=== PATIENT | female | born 2000 | race Caucasian/White ===

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

== ENCOUNTER 2020-01-16 07:00 | Outpatient (CLI) | payer OTHER ==
[2020-01-16 18:30] LABS: BASOPHILS % (AUTO) 0.5 %; EOSINOPHILS # (AUTO) 0.1 10^3/uL (0.0-0.7); EOSINOPHILS % (AUTO) 1.6 %; HGB - HEMOGLOBIN 12.9 g/dL (12.0-16.0); LYMPHOCYTES # (AUTO) 2.5 10^3/uL (1.5-3.5); LYMPHOCYTES % (AUTO) 31.8 %; MEAN CORPUSCULAR HEMOGLOBIN 27.8 pg (27.0-31.0); MEAN CORPUSCULAR VOLUME 86.9 fL (81.0-99.0); MEAN PLATELET VOLUME 9.2 fL (7.9-10.8); MONOCYTES # (AUTO) 0.4 10^3/uL (0.0-1.0); MONOCYTES % (AUTO) 4.6 %; NEUTROPHILS # (AUTO) 4.9 10^3/uL (1.5-6.6); NEUTROPHILS % (AUTO) 61.2 %; PLT - PLATELET COUNT 367 10^3/uL (130-450); RED BLOOD COUNT 4.64 10^6/uL (4.20-5.40); RED CELL DISTRIBUTION WIDTH 12.8 % (12.0-15.0)
[2020-01-16 18:44] LABS: ALBUMIN 3.8 g/dL (3.2-5.5); ALBUMIN/GLOBULIN RATIO 1.2 (1.0-2.2); BILIRUBIN,TOTAL 0.4 mg/dL (0.2-1.0); CREATININE 0.6 mg/dL (0.4-1.0); TOTAL PROTEIN 7.1 g/dL (6.7-8.2)
== END 2020-01-16 23:59 | disposition home or self-care (01) ==
LOC: LAB.WCP 07:00
PROVIDERS: ATTEND Physician Assistant
DX: E87.5 Hyperkalemia (principal); R61 Generalized hyperhidrosis; R10.9 Unspecified abdominal pain
CPT/HCPCS: 36415; 80053; 84443; 85025

== ENCOUNTER 2020-04-09 08:00 | Outpatient (CLI) | payer OTHER ==
[2020-04-09 18:46] LABS: ALBUMIN 3.8 g/dL (3.2-5.5); ALBUMIN/GLOBULIN RATIO 1.1 (1.0-2.2); BILIRUBIN,TOTAL 0.3 mg/dL (0.2-1.0); CALCIUM 9.3 mg/dL (8.5-10.3); CREATININE 0.6 mg/dL (0.4-1.0); TOTAL PROTEIN 7.2 g/dL (6.7-8.2)
[2020-04-09 18:55] LABS: HEMOGLOBIN A1c% 5.3 % (4.27-6.07)
[2020-04-09 18:59] LABS: BASOPHILS % (AUTO) 0.5 %; EOSINOPHILS # (AUTO) 0.1 10^3/uL (0.0-0.7); EOSINOPHILS % (AUTO) 0.7 %; HGB - HEMOGLOBIN 12.9 g/dL (12.0-16.0); LYMPHOCYTES # (AUTO) 2.1 10^3/uL (1.5-3.5); LYMPHOCYTES % (AUTO) 25.3 %; MEAN CORPUSCULAR HEMOGLOBIN 27.9 pg (27.0-31.0); MEAN CORPUSCULAR HGB CONC 32.3 g/dL (32.0-36.0); MEAN CORPUSCULAR VOLUME 86.4 fL (81.0-99.0); MEAN PLATELET VOLUME 9.8 fL (7.9-10.8); MONOCYTES # (AUTO) 0.5 10^3/uL (0.0-1.0); NEUTROPHILS # (AUTO) 5.6 10^3/uL (1.5-6.6); NEUTROPHILS % (AUTO) 67.3 %; PLT - PLATELET COUNT 353 10^3/uL (130-450); RED BLOOD COUNT 4.62 10^6/uL (4.20-5.40); RED CELL DISTRIBUTION WIDTH 12.2 % (12.0-15.0); WHITE BLOOD COUNT 8.3 x10^3/uL (4.8-10.8)
== END 2020-04-09 23:59 | disposition home or self-care (01) ==
LOC: LAB.WCP 08:00
PROVIDERS: ATTEND Physician Assistant
DX: R53.83 Other fatigue (principal); R61 Generalized hyperhidrosis; E66.3 Overweight
CPT/HCPCS: 36415; 80053; 83036; 85025; 85651

== ENCOUNTER 2020-04-22 04:59 | Emergency (ER) | payer OTHER ==
[2020-04-22] MEDS ORDERED: ONDANSETRON ODT 4 MG TABLET TL STA (05:23)
[2020-04-22] MEDS ORDERED: HYDROcod/ACETAM 5/325 MG TABLET PO STA (05:23)
--- NOTE | 2020-04-22 05:24 | ED Physician Documentation ---
PD HPI ABD PAIN - Stated complaint Stated Complaint: ADB PX, N/V - Chief complaint Chief Complaint: Abd Pain - History obtained from History obtained from: Patient - History of Present Illness Timing - onset: Last night (about 6 pm) Timing - details: Gradual onset, Still present (though has improved in the past hour or so enroute here.), Waxing and waning Quality: Cramping, Aching, Pain Location: Suprapubic, LLQ Radiation: Lower back Improved by: Laying still Worsened by: Moving, Palpation. No: Eating Associated symptoms: Fever (mild to just under 100.), Nausea, Diarrhea, Loss of appetite. No: Vomiting, Constipation, Melena, Hematochezia, Dysuria, Chest pain Similar symptoms before: No diagnosis Recently seen: Clinic, Emergency Dept (seen 3 month ago for similar without particular Dx. Presumed gastroenteritis at that point. Has had milder episodes too and has seen PMD. Discussion of possible colonscopy if recurrent episodes. Rx with dicyclomine daily at this point.) Review of Systems Constitutional: reports: Fever (mild). denies: Chills Nose: denies: Rhinorrhea / runny nose, Congestion Throat: denies: Sore throat Respiratory: denies: Cough GI: reports: Abdominal Pain, Nausea, Diarrhea. denies: Abdominal Swelling, Vo miting, Constipation, Bloody / black stool : denies: Dysuria, Frequency Skin: denies: Rash, Lesions Neurologic: denies: Generalized weakness, Near syncope PD PAST MEDICAL HISTORY - Past Medical History Past Medical History: No Cardiovascular: None Respiratory: None Neuro: None Endocrine/Autoimmune: None GI: Other Psych: Depression - Past Surgical History Past Surgical History: No - Present Medications Home Medications: Ambulatory Orders Medication Instructions Recorded Confirmed DULoxetine [Cymbalta] 30 mg PO DAILY 03/19/18 04/22/20 Dicyclomine HCl 0 mg PO QID PRN 12/20/19 04/22/20 Norgestimate-Ethinyl Estradiol 1 each PO DAILY 12/20/19 04/22/20 [Estarylla 0.25-0.035 mg Tablet] Ondansetron Odt [Zofran] 4 mg TL Q6H PRN #10 tablet 12/20/19 04/22/20 HYDROcod/ACETAM 5/325 [[place] 5/325] 1 ea PO Q6H PRN #12 tablet 04/22/20 Naproxen Sodium [Anaprox Ds] 550 mg PO BID #14 tablet 04/22/20 Ondansetron Odt [Zofran] 4 mg TL Q6H PRN #10 tablet 04/22/20 - Allergies Allergies/Adverse Reactions: Allergies Allergy/AdvReac Type Severity Reaction Status Date / Time amoxicillin Allergy Unknown Verified 04/22/20 07:25 Penicillins Allergy Hives Verified 04/22/20 05:03 shrimp Allergy Unknown Verified 04/22/20 07:25 - Social History Does the pt smoke?: No Smoking Status: Never smoker Does the pt drink ETOH?: No Does the pt have substance abuse?: No - Immunizations Immunizations are current?: Yes - POLST Patient has POLST: No PD ED PE NORMAL - Vitals Vital signs reviewed: Yes - General General: Alert and oriented X 3, Well developed/nourished, Other (seems just mildly uncomfortable here. Declines IV. ) - Cardiac Cardiac: RRR, No murmur - Respiratory Respiratory: Clear bilaterally - Abdomen Abdomen: Normal bowel sounds, Soft, Non distended, No organomegaly, Other (minimally tender suprapubic area and LLQ without guarding, percussion nor rebound tenderness. ) - Female Female : Deferred - Rectal Rectal: Deferred - Back Back: No CVA TTP - Derm Derm: Normal color, Warm and dry - Extremities Extremities: No tenderness to palpate, Normal ROM s pain, No edema, No calf tenderness / cord - Neuro Neuro: Alert and oriented X 3, No motor deficit, Normal speech Results - Vitals Vitals: Vital Signs - 24 hr 04/22/20 04/22/20 05:01 07:03 Temperature 36.3 C L Heart Rate 77 75 Respiratory 18 16 Rate Blood Pressure 137/83 H 133/85 H O2 Saturation 98 98 Oxygen O2 Source Room air - Labs Labs: Laboratory Tests 04/22/20 04/22/20 05:55 05:55 WBC 15.1 H RBC 4.82 Hgb 13.7 Hct 40.1 MCV 83.2 MCH 28.4 MCHC 34.2 RDW 11.7 L Plt Count 404 MPV 8.7 Neut # (Auto) 13.5 H Lymph # (Auto) 1.1 L [place] # (Auto) 0.5 Eos # (Auto) 0.0 Baso # (Auto) 0.0 Absolute Nucleated RBC 0.00 Nucleated RBC % 0.0 Sodium 133 L Potassium 3.8 Chloride 100 L Carbon Dioxide 22 Anion Gap 11.0 BUN 7 Creatinine 0.6 Estimated GFR (MDRD) 129 Glucose 134 H Calcium 8.6 Total Bilirubin 0.5 AST 16 ALT 13 Alkaline Phosphatase 75 C-Reactive Protein 2.1 H Total Protein 7.1 Albumin 3.9 Globulin 3.2 Albumin/Globulin Ratio 1.2 Lipase 26 PD MEDICAL DECISION MAKING - ED course Complexity details: reviewed old records, reviewed results, re-evaluated patient (feeling much better and minimally tender lower abd on recheck. ), considered differential (intermittent episodes of lower abd cramps/pains associated with diarrheal BMs and nausea. Consdier inflammatory bowel disorder. Not having acute abd exam at this time, so I feel imaging would not have any yield. More likely to get results/exclude processes with colonoscopy.), d/w patient Departure - Departure Disposition: Home, Self Care Clinical Impression: Abdominal pain Qualifiers: Abdominal location: lower abdomen, unspecified Qualified Code(s): R10.30 - Lower abdominal pain, unspecified Diarrhea Qualifiers: Diarrhea type: unspecified type Qualified Code(s): R19.7 - Diarrhea, unspecified Condition: Stable Record reviewed to determine appropriate education?: Yes Instructions: ED Abdominal Pain Unkn Cause Follow-Up: Jaelyn Young PA [Primary Care Provider] - Prescriptions: Naproxen Sodium [Anaprox Ds] 550 mg PO BID #14 tablet HYDROcod/ACETAM 5/325 [[place] 5/325] 1 ea PO Q6H PRN #12 tablet PRN Reason: Pain Ondansetron Odt [Zofran] 4 mg TL Q6H PRN #10 tablet PRN Reason: Nausea / Vomiting Comments: Your white count is a bit elevated again this time as it was in January. This could suggest an inflammatory or infectious cause. It is good that your pain is better now. I would suggest an anti-inflammatory twice daily naproxen for the next several days to week. To that add ondansetron if needed for nausea and Tylenol or pain medicine if needed for worse pains. Return if worsening symptoms overall. Otherwise follow-up with your primary care regarding further evaluation of these episodes. Discharge Date/Time: 04/22/20 07:15
[2020-04-22 06:09] LABS: BASOPHILS % (AUTO) 0.1 %; EOSINOPHILS % (AUTO) 0.2 %; HGB - HEMOGLOBIN 13.7 g/dL (12.0-16.0); LYMPHOCYTES # (AUTO) 1.1 10^3/uL (1.5-3.5); LYMPHOCYTES % (AUTO) 7.3 %; MEAN CORPUSCULAR HEMOGLOBIN 28.4 pg (27.0-31.0); MEAN CORPUSCULAR HGB CONC 34.2 g/dL (32.0-36.0); MEAN CORPUSCULAR VOLUME 83.2 fL (81.0-99.0); MEAN PLATELET VOLUME 8.7 fL (7.9-10.8); MONOCYTES # (AUTO) 0.5 10^3/uL (0.0-1.0); NEUTROPHILS # (AUTO) 13.5 10^3/uL (1.5-6.6); NEUTROPHILS % (AUTO) 89.1 %; PLT - PLATELET COUNT 404 10^3/uL (130-450); RED BLOOD COUNT 4.82 10^6/uL (4.20-5.40); RED CELL DISTRIBUTION WIDTH 11.7 % (12.0-15.0); WHITE BLOOD COUNT 15.1 x10^3/uL (4.8-10.8)
[2020-04-22 06:26] LABS: ALBUMIN 3.9 g/dL (3.2-5.5); ALBUMIN/GLOBULIN RATIO 1.2 (1.0-2.2); BILIRUBIN,TOTAL 0.5 mg/dL (0.2-1.0); CALCIUM 8.6 mg/dL (8.5-10.3); CREATININE 0.6 mg/dL (0.4-1.0); CRP - C-REACTIVE PROTEIN 2.1 mg/dL (0-1.0); TOTAL PROTEIN 7.1 g/dL (6.7-8.2)
[2020-04-22] MEDS ORDERED: NAPROXEN 250 MG TABLET PO STA (07:01)
[2020-04-22 07:15] VITALS: BP 133/85
== END 2020-04-22 07:15 | disposition home or self-care (01) ==
LOC: ED 04:59
DX: R10.32 Left lower quadrant pain (principal); R19.7 Diarrhea, unspecified; R11.0 Nausea; D72.829 Elevated white blood cell count, unspecified
CPT/HCPCS: 36415; 80053; 83690; 85025; 86140; 99283; 99284; A9270; Q0162

== ENCOUNTER 2020-04-24 08:00 | Outpatient (CLI) | payer OTHER ==
[2020-04-24 19:18] LABS: RHEUMATOID FACTOR NEGATIVE (Negative)
[2020-04-26 09:54] LABS: DNA (DS) ANTIBODY <1 IU/mL
[2020-04-26 11:42] LABS: ANA SCREEN NEGATIVE (NEGATIVE)
[2020-04-26 20:36] LABS: CYCLIC CITRULL PEPTIDE CCP IGG <16 UNITS
== END 2020-04-24 23:59 | disposition home or self-care (01) ==
LOC: LAB.WCP 08:00
PROVIDERS: ATTEND Physician Assistant
DX: R61 Generalized hyperhidrosis (principal)
CPT/HCPCS: 36415; 84443; 85651; 86038; 86140; 86200; 86225; 86430

== ENCOUNTER 2020-07-09 06:39 | Outpatient (CLI) | payer OTHER ==
--- NOTE | 2020-07-09 09:49 | Ultrasound Report ---
PROCEDURE: Abdomen Complete INDICATIONS: L ABD PAIN TECHNIQUE: Real-time scanning was performed of the abdominal and retroperitoneal organs, with image documentatio n. COMPARISON: 05/17/2007. FINDINGS: Liver: The liver demonstrates diffusely increased echotexture without focal abnormalities which is c onsistent with chronic hepatocellular disease/hepatic steatosis. Gallbladder: Gallbladder is normal in sonographic appearance without gallstones, wall thickening, or pericholecystic fluid. Negative sonographic Ambrose's. Biliary ducts: Intrahepatic bile ducts are non-dilated. Extrahepatic bile duct caliber measures 6 m m. Normal is 6-7 mm or less in diameter, or 10 mm or less post-cholecystectomy. Pancreas: Visualized portions of the pancreas are sonographically normal. Spleen: Spleen is normal in size and homogeneous in echotexture. Kidneys: Kidneys are normal in size and echotexture. Right kidney measures 10.7 cm long; left kidne y measures 10.5 cm long. No hydronephrosis or nephrolithiasis. No solid masses. Aorta: Visualized aorta is normal in caliber at less than 3 cm. Iliacs: Proximal common iliac arteries are normal in caliber at less than 2.5 cm. IVC: Intrahepatic inferior vena cava is patent. Miscellaneous: No free abdominal fluid. IMPRESSION: 1. Abdomen without acute sonographic abnormalities. 2. Mild diffuse hepatic steatosis. Reviewed by: Hadley Rodriguez MD on 07/09/2020 9:48 AM PDT Approved by: Hadley Rodriguez MD on 07/09/2020 9:48 AM PDT Station ID: [id number]
== END 2020-07-09 06:40 | disposition home or self-care (01) ==
LOC: DI 06:39
PROVIDERS: ATTEND Physician Assistant
DX: K76.0 Fatty (change of) liver, not elsewhere classified (principal)

== ENCOUNTER 2020-08-01 18:51 | Emergency (ER) | payer OTHER ==
--- OUTSIDE RECORDS SUMMARY | 2020-08-01 19:00 | EXTERNAL MEDICAL SUMMARY RPT | Continuity of Care Document ---
:2000 Demographics Phone Unavailable Preferred Language Unknown Marital Status Unknown Jainism Affiliation Unknown Race Unknown Ethnic Group Unknown Author Organization [facility] Address [address] [place] [address] Phone Social History date description facility [id number]
--- NOTE | 2020-08-01 19:15 | ED Physician Documentation ---
PD HPI CHEST PAIN - Stated complaint Stated Complaint: SOA - Chief complaint Chief Complaint: Cardiac - History obtained from History obtained from: Patient - Additional information Additional information: 5 days ago she was pulling on something and developed a sudden pop in the left upper anterior chest which has been persistent since with some mild breathlessness. Seen in urgent care and referred here for potential D-dimer check as the patient is on control. No close family history of coronary disease. No recent travel, no leg pain or pedal edema. No cough or hemoptysis. Review of Systems Ten Systems: 10 systems reviewed and negative Constitutional: denies: Fever, Chills Cardiac: denies: Palpitations, Pedal edema, Calf pain Respiratory: denies: Cough, Hemoptysis, Wheezing PD PAST MEDICAL HISTORY - Past Medical History Cardiovascular: None Respiratory: None Neuro: None Endocrine/Autoimmune: None GI: Other Psych: Depression - Past Surgical History Past Surgical History: No - Present Medications Home Medications: Ambulatory Orders Medication Instructions Recorded Confirmed DULoxetine [Cymbalta] 30 mg PO DAILY 03/19/18 04/22/20 Dicyclomine HCl 0 mg PO QID PRN 12/20/19 04/22/20 Norgestimate-Ethinyl Estradiol 1 each PO DAILY 12/20/19 04/22/20 [Estarylla 0.25-0.035 mg Tablet] Ondansetron Odt [Zofran] 4 mg TL Q6H PRN #10 tablet 12/20/19 04/22/20 HYDROcod/ACETAM 5/325 [[place] 5/325] 1 ea PO Q6H PRN #12 tablet 04/22/20 Naproxen Sodium [Anaprox Ds] 550 mg PO BID #14 tablet 04/22/20 Ondansetron Odt [Zofran] 4 mg TL Q6H PRN #10 tablet 04/22/20 - Allergies Allergies/Adverse Reactions: Allergies Allergy/AdvReac Type Severity Reaction Status Date / Time amoxicillin Allergy Unknown Verified 08/01/20 19:05 Penicillins Allergy Hives Verified 08/01/20 19:05 shrimp Allergy Unknown Verified 08/01/20 19:05 - Social History Does the pt smoke?: No Smoking Status: Never smoker Does the pt drink ETOH?: No Does the pt have substance abuse?: No - Immunizations Immunizations are current?: Yes - POLST Patient has POLST: No PD ED PE NORMAL - Vitals Vital signs reviewed: Yes - General General: Alert and oriented X 3, No acute distress - Neck Neck: Supple, no meningeal sign, No bony TTP - Cardiac Cardiac: RRR, No murmur - Respiratory Respiratory: No respiratory distress, Clear bilaterally - Abdomen Abdomen: Non tender - Extremities Extremities: No edema, No calf tenderness / cord - Neuro Neuro: Alert and oriented X 3, Normal speech Results - Vitals Vitals: Vital Signs - 24 hr 08/01/20 08/01/20 08/01/20 19:01 19:05 19:57 Temperature 36.5 C 36.5 C Heart Rate 98 98 Respiratory 16 16 16 Rate Blood Pressure 140/73 H 140/73 H O2 Saturation 99 99 08/01/20 20:28 Temperature 37.0 C Heart Rate 75 Respiratory 16 Rate Blood Pressure 133/70 H O2 Saturation 100 Oxygen O2 Source Room air - EKG (time done) 1902 Rate: Rate (enter#) (87) Rhythm: NSR [place]: Normal Intervals: Normal UT QRS: Normal Ischemia: Normal ST segments - Labs Labs: Laboratory Tests 08/01/20 08/01/20 08/01/20 19:14 19:14 19:14 WBC 8.4 RBC 4.65 Hgb 13.0 Hct 39.2 MCV 84.3 MCH 28.0 MCHC 33.2 RDW 12.5 Plt Count 325 MPV 8.8 Neut # (Auto) 5.8 Lymph # (Auto) 2.0 [place] # (Auto) 0.6 Eos # (Auto) 0.1 Baso # (Auto) 0.0 Absolute Nucleated RBC 0.00 Nucleated RBC % 0.0 D-Dimer < 200.0 L Sodium 137 Potassium 3.7 Chloride 102 Carbon Dioxide 23 Anion Gap 12.0 BUN 8 Creatinine 0.8 Estimated GFR (MDRD) 92 Glucose 83 Calcium 9.2 Total Bilirubin 0.8 AST 16 ALT 16 Alkaline Phosphatase 66 Troponin I High Sens Total Protein 7.5 Albumin 4.1 Globulin 3.4 Albumin/Globulin Ratio 1.2 Lipase 33 08/01/20 19:14 WBC RBC Hgb Hct MCV MCH MCHC RDW Plt Count MPV Neut # (Auto) Lymph # (Auto) [place] # (Auto) Eos # (Auto) Baso # (Auto) Absolute Nucleated RBC Nucleated RBC % D-Dimer Sodium Potassium Chloride Carbon Dioxide Anion Gap BUN Creatinine Estimated GFR (MDRD) Glucose Calcium Total Bilirubin AST ALT Alkaline Phosphatase Troponin I High Sens < 2.3 L Total Protein Albumin Globulin Albumin/Globulin Ratio Lipase - Rads (name of study) 1v chest Radiology: EMP read contemporaneously (NAD) PD MEDICAL DECISION MAKING - ED course ED course: Heart zero but PERC positive but dimer neg Departure - Departure Disposition: Home, Self Care Clinical Impression: Atypical chest pain Condition: Good Record reviewed to determine appropriate education?: Yes Instructions: ED Chest Pain NonCardiac Comments: Call your doctor to arrange a follow-up appointment, make the next available appointment. In the interim, return anytime if worse or if new symptoms deve lop. Discharge Date/Time: 08/01/20 20:28
[2020-08-01 19:21] LABS: BASOPHILS % (AUTO) 0.4 %; EOSINOPHILS # (AUTO) 0.1 10^3/uL (0.0-0.7); EOSINOPHILS % (AUTO) 0.7 %; HCT - HEMATOCRIT 39.2 % (37.0-47.0); LYMPHOCYTES % (AUTO) 23.8 %; MEAN CORPUSCULAR HGB CONC 33.2 g/dL (32.0-36.0); MEAN CORPUSCULAR VOLUME 84.3 fL (81.0-99.0); MEAN PLATELET VOLUME 8.8 fL (7.9-10.8); MONOCYTES # (AUTO) 0.6 10^3/uL (0.0-1.0); MONOCYTES % (AUTO) 6.5 %; NEUTROPHILS # (AUTO) 5.8 10^3/uL (1.5-6.6); NEUTROPHILS % (AUTO) 68.4 %; PLT - PLATELET COUNT 325 10^3/uL (130-450); RED BLOOD COUNT 4.65 10^6/uL (4.20-5.40); RED CELL DISTRIBUTION WIDTH 12.5 % (12.0-15.0); WHITE BLOOD COUNT 8.4 x10^3/uL (4.8-10.8)
--- NOTE | 2020-08-01 19:31 | XRAY Report ---
PROCEDURE: Chest 1 View X-Ray INDICATIONS: Chest Pain TECHNIQUE: One view of the chest was acquired. COMPARISON: Not available. FINDINGS: Surgical changes and devices: None. Lungs and pleura: No pleural effusions or pneumothorax. Lungs are clear. Mediastinum: Mediastinal contours appear normal. Heart size is normal. Bones and chest wall: No suspicious bony lesions. Overlying soft tissues appear unremarkable. IMPRESSION: No acute cardiopulmonary disease. Reviewed by: Jose Cruz El MD on 08/01/2020 7:30 PM PDT Approved by: Jose Cruz El MD on 08/01/2020 7:30 PM PDT Station ID: [id number]
[2020-08-01 19:42] LABS: ALBUMIN 4.1 g/dL (3.2-5.5); ALBUMIN/GLOBULIN RATIO 1.2 (1.0-2.2); BILIRUBIN,TOTAL 0.8 mg/dL (0.2-1.0); CALCIUM 9.2 mg/dL (8.5-10.3); CREATININE 0.8 mg/dL (0.4-1.0); POTASSIUM 3.7 mmol/L (3.5-5.0); TOTAL PROTEIN 7.5 g/dL (6.7-8.2)
[2020-08-01 20:30] VITALS: BP 133/70
== END 2020-08-01 20:28 | disposition home or self-care (01) ==
LOC: ED 18:51
DX: R07.89 Other chest pain (principal)
CPT/HCPCS: 36415; 80053; 83690; 84484; 85025; 85379; 93005; 99283; 99284

== ENCOUNTER 2020-11-06 23:07 | Emergency (ER) | payer OTHER ==
[2020-11-06 23:55] LABS: BASOPHILS % (AUTO) 0.2 %; EOSINOPHILS % (AUTO) 0.2 %; HGB - HEMOGLOBIN 14.2 g/dL (12.0-16.0); LYMPHOCYTES # (AUTO) 0.9 10^3/uL (1.5-3.5); LYMPHOCYTES % (AUTO) 7.1 %; MEAN CORPUSCULAR HEMOGLOBIN 28.4 pg (27.0-31.0); MEAN CORPUSCULAR HGB CONC 33.8 g/dL (32.0-36.0); MEAN PLATELET VOLUME 8.7 fL (7.9-10.8); MONOCYTES # (AUTO) 0.5 10^3/uL (0.0-1.0); MONOCYTES % (AUTO) 3.7 %; NEUTROPHILS # (AUTO) 10.7 10^3/uL (1.5-6.6); NEUTROPHILS % (AUTO) 88.6 %; PLT - PLATELET COUNT 329 10^3/uL (130-450); RED CELL DISTRIBUTION WIDTH 12.6 % (12.0-15.0); WHITE BLOOD COUNT 12.1 x10^3/uL (4.8-10.8)
[2020-11-06 23:56] LABS: BILIRUBIN,URINE NEGATIVE (NEGATIVE); GLUCOSE, URINE (UA) NEGATIVE (NEGATIVE); KETONES,URINE (UA) 15 mg/dL (NEGATIVE); LEUKOCYTE ESTERASE, URINE NEGATIVE (NEGATIVE); NITRITE,URINE NEGATIVE (NEGATIVE); OCCULT BLOOD,URINE NEGATIVE (NEGATIVE); PH,URINE 5.5 PH (5.0-7.5); PROTEIN,URINE NEGATIVE (NEGATIVE); UROBILINOGEN,URINE 1 (NORMAL) E.U./dL (NORMAL)
[2020-11-06 23:58] LABS: CLARITY,URINE CLEAR (CLEAR); HCG UR QUAL NEGATIVE
[2020-11-07 00:04] LABS: ALBUMIN 3.8 g/dL (3.2-5.5); ALBUMIN/GLOBULIN RATIO 1.1 (1.0-2.2); CALCIUM 8.4 mg/dL (8.5-10.3); CREATININE 0.7 mg/dL (0.4-1.0); POTASSIUM 3.8 mmol/L (3.5-5.0); TOTAL PROTEIN 7.2 g/dL (6.7-8.2)
--- NOTE | 2020-11-07 00:16 | ED Physician Documentation ---
PD HPI ABD PAIN - Stated complaint Stated Complaint: ABD PX - Chief complaint Chief Complaint: Abd Pain - History obtained from History obtained from: Patient - History of Present Illness Timing - onset: Enter time (06:00), Today Timing - details: Abrupt onset Pain level max: 8 Pain level now: 3 Quality: Cramping, Pain Location: All over / everywhere Improved by: Other (no apparent ameliorating factors) Worsened by: Eating Associated symptoms: Nausea, Vomiting. No: Fever, Diarrhea, Constipation Similar symptoms before: No diagnosis Recently seen: Not recently seen - Additional information Additional information: c/o waxing and waning generalized abdominal pain with nausea and vomiting, diarrhea, and diaphoresis since 6 AM. At times the symptoms have resolved only to return later without obvious/apparent inciting factors. She has had many previously similar episodes and has had testing both in ED (a few visits to this ED) as well as outpatient (has seen GI and had upper and lower endoscopy without significant findings). She has been using bentyl PRN with these episodes which often helps, sometimes providing complete and lasting resolution, but she vomited up the bentyl tonight. She says she recently was told she has a uterine fibroid, although this would be an incidental finding Review of Systems Constitutional: reports: Sweats. denies: Fever, Chills Cardiac: reports: Reviewed and negative Respiratory: reports: Reviewed and negative GI: reports: Abdominal Pain, Nausea, Vomiting. denies: Abdominal Swelling, Constipation, Diarrhea, Hematemesis, Bloody / black stool : denies: Dysuria, Hematuria, Vaginal bleeding, Now EGA PD PAST MEDICAL HISTORY - Past Medical History Cardiovascular: None Respiratory: None Neuro: None Endocrine/Autoimmune: None GI: Other Psych: Depression - Past Surgical History Past Surgical History: No General: Colonoscopy HEENT: Tonsil/Adenoidectomy - Present Medications Home Medications: Ambulatory Orders Medication Instructions Recorded Confirmed Dicyclomine HCl 20 mg PO QID PRN 12/20/19 11/06/20 Norgestimate-Ethinyl Estradiol 1 each PO DAILY 12/20/19 11/06/20 [Estarylla 0.25-0.035 mg Tablet] HYDROcod/ACETAM 5/325 [[place] 5/325] 1 ea PO Q6H PRN #12 tablet 04/22/20 Ondansetron Odt [Zofran] 4 mg TL Q6H PRN #10 tablet 04/22/20 buPROPion [Wellbutrin Sr] 150 mg PO BID 11/06/20 11/06/20 busPIRone [Buspar] 15 mg PO BID 11/06/20 11/06/20 - Allergies Allergies/Adverse Reactions: Allergies Allergy/AdvReac Type Severity Reaction Status Date / Time amoxicillin Allergy Unknown Verified 11/06/20 23:09 Penicillins Allergy Hives Verified 11/06/20 23:09 shrimp Allergy Unknown Verified 11/06/20 23:09 - Social History Does the pt smoke?: No Smoking Status: Never smoker Does the pt drink ETOH?: No Does the pt have substance abuse?: No - Immunizations Immunizations are current?: Yes - POLST Patient has POLST: No PD ED PE NORMAL - Vitals Vital signs reviewed: Yes - General General: Alert and oriented X 3, No acute distress, Well developed/nourished (as), Other (asleep when I walk into room, easily wakens to voice, NAD) - Cardiac Cardiac: RRR, No murmur - Respiratory Respiratory: No respiratory distress, Clear bilaterally - Abdomen Abdomen: Soft, Non distended, Other (mild TTP across lower abdomen without rebound or guarding) Results - Vitals Vitals: Oxygen O2 Source Room air - Labs Labs: Laboratory Tests 11/06/20 11/06/20 11/06/20 23:39 23:39 23:39 WBC 12.1 H RBC 5.00 Hgb 14.2 Hct 42.0 MCV 84.0 MCH 28.4 MCHC 33.8 RDW 12.6 Plt Count 329 MPV 8.7 Neut # (Auto) 10.7 H Lymph # (Auto) 0.9 L [place] # (Auto) 0.5 Eos # (Auto) 0.0 Baso # (Auto) 0.0 Absolute Nucleated RBC 0.00 Nucleated RBC % 0.0 Sodium 136 Potassium 3.8 Chloride 102 Carbon Dioxide 22 Anion Gap 12.0 BUN 11 Creatinine 0.7 Estimated GFR (MDRD) 107 Glucose 128 H Calcium 8.4 L Total Bilirubin 1.0 AST 13 ALT 13 Alkaline Phosphatase 74 Total Protein 7.2 Albumin 3.8 Globulin 3.4 Albumin/Globulin Ratio 1.1 Lipase 25 Urine Color YELLOW Urine Clarity CLEAR Urine pH 5.5 Ur Specific [place] >=1.030 H Urine Protein NEGATIVE Urine Glucose (UA) NEGATIVE Urine Ketones 15 H Urine Occult Blood NEGATIVE Urine Nitrite NEGATIVE Urine Bilirubin NEGATIVE Urine Urobilinogen 1 (NORMAL) Ur Leukocyte Esterase NEGATIVE Ur Microscopic Review NOT INDICATED Urine Culture Comments NOT INDICATED Urine HCG, Qual NEGATIVE - Rads (name of study) CT A/P with IV contrast Radiology: Prelim report reviewed, See rad report PD MEDICAL DECISION MAKING - ED course Complexity details: reviewed old records, reviewed results, re-evaluated patient, considered differential, d/w patient, d/w family ED course: reassuring and mostly unremarkable tests tonight; minimal leukocytosis (wbc 12.1). UA negative, urine HCG negative, normal LFTs. CT A/P without significant findings, incidental note of diverticulosis without diverticulitis. Patient is in NAD on initial evaluation as well as on reevaluation. She describes episodes of severe pain with diaphoresis, n/v/d, and as we discussed results and discharge plans, she reported pain was slowly returning. We discussed options for analgesia and agreed on IV toradol, PO vicodin with take-home pack for vicodin but no rx. she has bentyl at home and will take that as prescribed. Departure - Departure Disposition: 01 Home, Self Care Clinical Impression: Abdominal pain Qualifiers: Abdominal location: generalized Qualified Code(s): R10.84 - Generalized abdomi nal pain Condition: Good Instructions: ED Abdominal Pain Unkn Cause Follow-Up: Jaelyn Young PA-C [Primary Care Provider] - (Call in the morning to arrange for next available appointment) Discharge Date/Time: 11/07/20 03:11
[2020-11-07] MEDS ORDERED: IOPAMIDOL-300 100 ML VIAL ONE (00:46)
[2020-11-07] MEDS ORDERED: IOPAMIDOL-300 100 ML VIAL IVP ONE (01:12)
[2020-11-07] MEDS ORDERED: KETOROLAC 30 MG/ML VIAL IVP STA (02:44)
[2020-11-07] MEDS ORDERED: HYDROcod/ACETAM 5/325 MG TABLET PO STA (02:44)
[2020-11-07] MEDS ORDERED: HYDROcod/ACET 5/325 Prepack 4 PO STA (02:44)
[2020-11-07 03:06] VITALS: BP 124/80
--- NOTE | 2020-11-07 11:15 | CT Report ---
PROCEDURE: Abdomen/Pelvis W INDICATIONS: lower abdominal pain CONTRAST: IV CONTRAST: Isovue 300 ml: 100 PO CONTRAST: *NO PO CONTRAST TECHNIQUE: After the administration of terminates contrast, 5 mm thick sections acquired from the diaphragms to the symphysis. 5 mm thick coronal and sagittal reformats were acquired. For radiation dose reductio n, the following was used: automated exposure control, adjustment of mA and/or kV according to patie nt size. COMPARISON: Ultrasound abdomen, 07/09/2020. Ultrasound pelvis, 10/16/2019 FINDINGS: Image quality: Excellent. ABDOMEN: Lung bases: Lung bases are clear. Heart size is normal. Solid organs: Liver and spleen are normal in size and enhancement. Gallbladder is normal. Biliary system is non dilated. Pancreas enhances normally. No adrenal nodules. Kidneys demonstrate normal size and enhancement, without hydronephrosis. Peritoneum and bowel: Appendix is normal. Bowel loops demonstrate normal wall thickness and caliber. No free fluid or air. Nodes and vessels: No retroperitoneal or mesenteric adenopathy by size criteria. Aorta and inferior vena cava are normal in size. Miscellaneous: No ventral hernias. PELVIS: Genitourinary: Bladder wall thickness is normal. Uterus and ovaries are normal. There is a small am ount of free fluid in the cul-de-sac. Miscellaneous: No inguinal hernias or adenopathy. Bones: No suspicious bony lesions. No vertebral body compression fractures. IMPRESSION: 1. Normal appendix. 2. A small amount of free fluid in the cul-de-sac is likely within physiological limits for No significant discrepancy with the preliminary interpretation. Reviewed by: Jose Cruz El MD on 11/07/2020 11:14 AM PDT Approved by: Jose Cruz El MD on 11/07/2020 11:14 AM PDT Station ID: [id number]
== END 2020-11-07 03:11 | disposition home or self-care (01) ==
LOC: ED 23:07
DX: R10.84 Generalized abdominal pain (principal)
CPT/HCPCS: 36415; 74177; 80053; 81003; 81025; 83690; 85025; 96374; 99283; 99284; A9270; Q9967; 81001; 87086

== ENCOUNTER 2021-02-03 06:33 | Emergency (ER) | payer OTHER ==
[2021-02-03] MEDS ORDERED: SODIUM CHLORIDE 0.9% 1,000 ML IV STA (08:01)
--- NOTE | 2021-02-03 08:05 | ED Physician Documentation ---
PD HPI NVD - Stated complaint Stated Complaint: N/V - Chief complaint Chief Complaint: Abd Pain - History obtained from History obtained from: Patient - History of Present Illness Timing - onset: Last night Timing - duration: Hours Timing - details: Abrupt onset, Still present Associated symptoms: Abdominal pain, Other (diarrhea and vomiting) Contributing factors: Other (has hx of irritable bowel) Improved by: Vomiting, Meds Worsened by: Eating Similar symptoms before: Diagnosis (irritable bowel) Recently seen: Not recently seen - Additonal information Additional information: 20-year-old female with a history of irritable bowel syndrome has developed symptoms again yesterday evening and she has been having issue with vomiting diarrhea and abdominal pain most of the night. She has taken some Bentyl and some Zofran as well as some methocarbamol she states that she vomited on her way to the hospital and since vomiting at the hospital she has not had further vomiting for the last hour and a half and states her stomach pain is a bit better. She has had this a number of times previously she has been able to use rescue therapy successfully previously when she continued to have diarrhea and nausea and abdominal pain she came to the emergency department she feels improved now but is likely dehydrated. Review of Systems Constitutional: denies: Fever, Chills, Myalgias Eyes: denies: Decreased vision Ears: denies: Ear pain Nose: denies: Congestion Throat: denies: Sore throat Cardiac: denies: Chest pain / pressure, Palpitations Respiratory: denies: Dyspnea, Cough GI: reports: Abdominal Pain, Nausea, Vomiting, Diarrhea : denies: Dysuria, Frequency PD PAST MEDICAL HISTORY - Past Medical History Past Medical History: Yes Cardiovascular: None Respiratory: None Neuro: None Endocrine/Autoimmune: None GI: Other Psych: Depression - Past Surgical History Past Surgical History: No General: Colonoscopy HEENT: Tonsil/Adenoidectomy - Present Medications Home Medications: Ambulatory Orders Medication Instructions Recorded Confirmed Norgestimate-Ethinyl Estradiol 1 each PO DAILY 12/20/19 11/06/20 [Estarylla 0.25-0.035 mg Tablet] Ondansetron Odt [Zofran] 4 mg TL Q6H PRN #10 tablet 04/22/20 02/03/21 buPROPion [Wellbutrin Sr] 150 mg PO BID 11/06/20 02/03/21 busPIRone [Buspar] 20 mg PO BID 11/06/20 02/03/21 Hyoscyamine Sulfate [Levsin-Sl] 0.125 mg SL PRN PRN 02/03/21 02/03/21 - Allergies Allergies/Adverse Reactions: Allergies Allergy/AdvReac Type Severity Reaction Status Date / Time amoxicillin Allergy Unknown Verified 11/06/20 23:09 Penicillins Allergy Hives Verified 11/06/20 23:09 shrimp Allergy Unknown Verified 11/06/20 23:09 - Social History Does the pt smoke?: No Smoking Status: Never smoker Does the pt drink ETOH?: No Does the pt have substance abuse?: No - Immunizations Immunizations are current?: Yes - POLST Patient has POLST: No PD ED PE NORMAL - Vitals Vital signs reviewed: Yes (tachy and hypertensive mild ) - General General: Alert and oriented X 3, No acute distress, Well developed/nourished - HEENT HEENT: Atraumatic, PERRL, EOMI - Neck Neck: Supple, no meningeal sign, No bony TTP - Cardiac Cardiac: RRR, No murmur - Respiratory Respiratory: No respiratory distress, Clear bilaterally - Abdomen Abdomen: Normal bowel sounds, Soft, Non tender, Non distended, No organomegaly - Back Back: No CVA TTP, No spinal TTP - Derm Derm: Normal color, Warm and dry, No rash - Extremities Extremities: No deformity, No edema - Neuro Neuro: Alert and oriented X 3, pugger helper 2-12 intact, No motor deficit, No sensory deficit, Normal speech Eye Opening: Spontaneous Motor: Obeys Commands Verbal: Oriented GCS Score: 15 - Psych Psych: Normal mood, Normal affect Results - Vitals Vitals: Vital Signs - 24 hr 02/03/21 02/03/21 02/03/21 06:41 06:51 09:18 Temperature 36.6 C 36.6 C Heart Rate 103 H 99 74 Respiratory 14 15 19 Rate Blood Pressure 139/79 H 139/79 H 123/77 O2 Saturation 96 97 99 Oxygen O2 Source Room air - Labs Labs: Laboratory Tests 02/03/21 02/03/21 02/03/21 08:17 08:17 09:01 WBC 15.0 H RBC 4.93 Hgb 14.1 Hct 42.1 MCV 85.4 MCH 28.6 MCHC 33.5 RDW 11.9 L Plt Count 329 MPV 8.5 Neut # (Auto) 12.6 H Lymph # (Auto) 1.4 L [place] # (Auto) 0.9 Eos # (Auto) 0.1 Baso # (Auto) 0.1 Absolute Nucleated RBC 0.00 Nucleated RBC % 0.0 Sodium 137 Potassium 4.3 Chloride 107 Carbon Dioxide 22 Anion Gap 8.0 BUN 10 Creatinine 0.6 Estimated GFR (MDRD) 127 Glucose 101 H Calcium 9.1 Total Bilirubin 0.6 AST 15 ALT 12 Alkaline Phosphatase 69 Total Protein 7.5 Albumin 4.1 Globulin 3.4 Albumin/Globulin Ratio 1.2 Lipase 37 Urine Color YELLOW Urine Clarity CLEAR Urine pH 6.0 Ur Specific [place] 1.020 Urine Protein NEGATIVE Urine Glucose (UA) NEGATIVE Urine Ketones NEGATIVE Urine Occult Blood NEGATIVE Urine Nitrite NEGATIVE Urine Bilirubin NEGATIVE Urine Urobilinogen 0.2 (NORMAL) Ur Leukocyte Esterase NEGATIVE Ur Microscopic Review NOT INDICATED Urine Culture Comments NOT INDICATED Urine HCG, Qual NEGATIVE PD MEDICAL DECISION MAKING - ED course Complexity details: reviewed results, re-evaluated patient, considered differential, d/w patient ED course: 20-year-old female with history of irritable bowel syndrome has had some irritable syndrome symptoms overnight and she had severe enough pain and vomiting was unable to keep fluids down and felt she was dehydrated and came to the emergency department. Since she has been in the emergency department her symptoms have mostly abated as she had previously treated them prior to coming to the emergency department. She is administered a liter of saline and did not require antiemetic. Departure - Departure Disposition: 01 Home, Self Care Clinical Impression: Dehydration Irritable bowel Qualifiers: Irritable bowel syndrome type: with diarrhea Qualified Code(s): K58.0 - Irritable bowel syndrome with diarrhea Instructions: ED IBS, ED Dehydration Follow-Up: Jaelyn Young PA-C [Primary Care Provider] -
[2021-02-03 08:21] LABS: BASOPHILS # (AUTO) 0.1 10^3/uL (0.0-0.1); BASOPHILS % (AUTO) 0.4 %; EOSINOPHILS # (AUTO) 0.1 10^3/uL (0.0-0.7); EOSINOPHILS % (AUTO) 0.5 %; HCT - HEMATOCRIT 42.1 % (37.0-47.0); HGB - HEMOGLOBIN 14.1 g/dL (12.0-16.0); LYMPHOCYTES # (AUTO) 1.4 10^3/uL (1.5-3.5); LYMPHOCYTES % (AUTO) 9.2 %; MEAN CORPUSCULAR HEMOGLOBIN 28.6 pg (27.0-31.0); MEAN CORPUSCULAR HGB CONC 33.5 g/dL (32.0-36.0); MEAN CORPUSCULAR VOLUME 85.4 fL (81.0-99.0); MEAN PLATELET VOLUME 8.5 fL (7.9-10.8); MONOCYTES # (AUTO) 0.9 10^3/uL (0.0-1.0); MONOCYTES % (AUTO) 6.2 %; NEUTROPHILS # (AUTO) 12.6 10^3/uL (1.5-6.6); NEUTROPHILS % (AUTO) 83.4 %; PLT - PLATELET COUNT 329 10^3/uL (130-450); RED BLOOD COUNT 4.93 10^6/uL (4.20-5.40); RED CELL DISTRIBUTION WIDTH 11.9 % (12.0-15.0)
[2021-02-03 08:35] LABS: ALBUMIN 4.1 g/dL (3.2-5.5); ALBUMIN/GLOBULIN RATIO 1.2 (1.0-2.2); BILIRUBIN,TOTAL 0.6 mg/dL (0.2-1.0); CALCIUM 9.1 mg/dL (8.5-10.3); CREATININE 0.6 mg/dL (0.4-1.0); POTASSIUM 4.3 mmol/L (3.5-5.0); TOTAL PROTEIN 7.5 g/dL (6.7-8.2)
[2021-02-03 09:19] LABS: BILIRUBIN,URINE NEGATIVE (NEGATIVE); GLUCOSE, URINE (UA) NEGATIVE (NEGATIVE); KETONES,URINE (UA) NEGATIVE (NEGATIVE); LEUKOCYTE ESTERASE, URINE NEGATIVE (NEGATIVE); NITRITE,URINE NEGATIVE (NEGATIVE); OCCULT BLOOD,URINE NEGATIVE (NEGATIVE); PROTEIN,URINE NEGATIVE (NEGATIVE); UROBILINOGEN,URINE 0.2 (NORMAL) E.U./dL (NORMAL)
[2021-02-03 09:22] LABS: CLARITY,URINE CLEAR (CLEAR); HCG UR QUAL NEGATIVE
[2021-02-03 10:24] VITALS: BP 120/86
== END 2021-02-03 10:25 | disposition home or self-care (01) ==
LOC: ED 06:33
DX: K58.0 Irritable bowel syndrome with diarrhea (principal); E86.0 Dehydration
CPT/HCPCS: 36415; 80053; 81001; 81003; 81025; 83690; 85025; 87086; 96360; 99282